=== PATIENT | female | born 1970 | race American Indian/Alaskan Native ===

== ENCOUNTER 2017-10-06 07:05 | Day surgery (SDC) | payer OTHER ==
[2016-10-07 17:22] VITALS: BMI 35.3
[2017-10-06 07:49] VITALS: BP 123/84; PULSE 67; RESP 18; TEMP 97.2
[2017-10-06] MEDS ORDERED: Midazolam 2 MG/2 ML VIAL ONE (08:22)
[2017-10-06] MEDS ORDERED: Propofol 10 mg/ml Inj (20 ML) ONE (08:22)
[2017-10-06] MEDS ORDERED: HYDROmorphone 0.5 mg/0.5 ml ISec IVP PRN (09:24)
--- NOTE | 2017-10-06 09:25 | PCM.SURG1 ---
Surgeon's Initial Post Op Note - Surgeon's Notes Surgeon: Sharlene Barber MD Medical Officer: none Type of Anesthesia: General LMA Pre-Operative Diagnosis: Abnormal uterine bleeding Operative Findings: 10-12 week size retroverted uteurs, submcosal myoma along left lateral wall with bilaterl ostia visluzed iwth uterine septum resected iwth myosure device Post-Operative Diagnosis: Abnormal uterine bleeding, submucosal myoma, uterine wall Operation Performed: Hysteroscopi myomecotmy, uterine wall resection Specimen/Specimens Removed: endocervical curretting, endometiral curettind, submucosal myoma, uteirne wall Estimated Blood Loss: EBL {In ML}: 5 Blood Products Given: N/A Drains Used: No Drains Post-Op Condition: Good Date of Surgery/Procedure: 10/06/17 Time of Surgery/Procedure: 09:00
[2017-10-06 11:15] VITALS: O2SAT 100
--- NOTE | 2017-10-06 19:20 | OP ---
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 TYPE OF ANESTHESIA: General LMA. PREOPERATIVE DIAGNOSIS: Abnormal uterine bleeding. SIGNIFICANT FINDINGS: A 10 week size retroverted uterus, submucosal myoma along the left lateral wall, bilateral ostia visualized with uterine septum resected carefully. POSTOPERATIVE DIAGNOSES: Abnormal uterine bleeding, submucosal myoma in the uterine wall. PROCEDURE: Hysteroscopic myomectomy, uterine wall resection, dilation and curettage. SPECIMEN REMOVED: Endocervical curettings, endometrial curettings, and submucosal myoma uterine wall. ESTIMATED BLOOD LOSS: 5 mL. BLOOD PRODUCTS: None. COMPLICATIONS: None. DESCRIPTION OF THE PROCEDURE: Patient was taken to the operating room where she was given general anesthesia. Once found to be adequate, she was placed on the operating table in dorsal supine position with legs supported using stirrups. Patient was then prepped and draped in the usual sterile fashion. A time-out confirmed correct patient and correct procedure. Bimanual exam was performed with the above-mentioned findings. A Garcia retractor was placed in the anterior and posterior fornix of the vagina. A single-tooth tenaculum was placed on the anterior and posterior lips of the cervix. Endocervical curettings were obtained with a Ange curette, sent to the Pathology on [facility]. The uterus was then sounded to 8 cm. Following this, the cervix was sequentially dilated to allow for introduction of 5 mm hysteroscope under direct visualization using normal saline as distention media. Please refer to above findings for the operative note of what was found. Following this, a MyoSure device was then carefully inserted and the myoma was then carefully resected in addition to the uterine septum until the adequate septum release was removed. Bilateral ostia were visualized. There was good hemostasis noted. All instruments were removed. Gentle curettage was done, sent to Pathology on [facility] labelled as endometrial curettings. All instruments removed. There was good hemostasis at the tenaculum puncture site. At the end of the procedure, all needle, sponge, and instrument counts were noted and correct x2. The patient tolerated the procedure well and was transferred to the recovery room in stable condition. Sharlene Barber MD
== END 2017-10-06 12:04 | disposition home or self-care (01) ==
LOC: C.SDS 07:05
PROVIDERS: ATTEND Obstetrics & Gynecology
DX: N93.9 Abnormal uterine and vaginal bleeding, unspecified (principal); D25.0 Submucous leiomyoma of uterus; N76.0 Acute vaginitis
CPT/HCPCS: 58561; 88305; J2250; J2704; J3010